=== PATIENT | female | born 1955 | race Two or more races ===

== ENCOUNTER 2019-06-22 19:20 | Emergency (ER) | payer OTHER ==
[~2019-06-22] VITALS: Ht 160 cm; Wt 84.2 kg
[2019-06-22 19:22] VITALS: BP 149/82
== END 2019-06-22 20:20 | disposition home or self-care (01) ==
LOC: ED 19:34
DX: S90.862A Insect bite (nonvenomous), left foot, initial encounter (principal); I10 Essential (primary) hypertension; W57.XXXA Bitten or stung by nonvenomous insect and other nonvenomous arthropods, initial encounter; Y93.89 Activity, other specified; Y92.89 Other specified places as the place of occurrence of the external cause; Y99.8 Other external cause status
CPT/HCPCS: 73630; 99283; Q0177